=== PATIENT | female | born 1985 | race Caucasian/White ===

== ENCOUNTER 2024-08-30 09:28 | Emergency (ER) | payer BC ==
[~2024-08-30] VITALS: Ht 165.1 cm; Wt 81.7 kg
[2024-08-30 09:39] VITALS: BP 125/80; PULSE 86; RESP 18; TEMP 97.8; O2SAT 97
== END 2024-08-30 11:54 | disposition left against medical advice (07) ==
LOC: ER 09:28
DX: Z53.21 Procedure and treatment not carried out due to patient leaving prior to being seen by health care provider (principal)